=== PATIENT | female | born 1980 | race Caucasian/White ===

== ENCOUNTER 2017-12-20 05:30 | Day surgery (SDC) | payer OTHER ==
[~2017-12-20] VITALS: Ht 160 cm; Wt 55.3 kg
[~2017-12-20 05:30] MED LIST: COLACE100 MG PO; LINZESS145 MCG PO; MACROBID100 MG PO; MILK OF MAGN PO; MORPHINE SULFAT15 MG PO; MOTRIN IB200 MG PO; MS CONTIN,ORAMO15 M1 PO; PERCOCET 5/31 TABLET PO; PERCOCET 7.51 TABLET PO; RELPAX40 MG PO; STOOL SOFTENER100 MG PO; TECFIDERA240 MG PO; ZANTAC150 MG PO; ZYRTEC-D1 TABLE1 PO
[2017-12-20 06:20] VITALS: BP 111/70
[2017-12-20 09:45] VITALS: BP 99/72
[2017-12-20 10:19] VITALS: BP 97/64
== END 2017-12-20 10:25 | disposition home or self-care (01) ==
LOC: SDC 05:30
DX: R87.623 High grade squamous intraepithelial lesion on cytologic smear of vagina (HGSIL) (principal); Z85.41 Personal history of malignant neoplasm of cervix uteri; G35 Multiple sclerosis; Z92.25 Personal history of immunosuppression therapy; Z79.899 Other long term (current) drug therapy
CPT/HCPCS: 88305; 88342 TC; J0131; J1100; J1170; J1580; J1885; J2250; J2405; J3010; J7050; J7120; S0020; S0030